=== PATIENT | female | born 1955 | race Caucasian/White ===

== ENCOUNTER → 2019-09-10 | Outpatient (CLI) | payer BC ==
[2019-09-10 10:54] LABS: Basophils # (A) 0.3 k/uL (0-0.2); Basophils % (A) 3 %; Eosinophils # (A) 0.1 k/uL (0-0.7); Eosinophils % (A) 1 %; HCT 45.9 % (34.0-46.0); HGB 14.5 gm/dL (11.4-16.0); Lymphocytes # (A) 2.9 k/uL (1.0-4.8); Lymphocytes % (A) 26 %; MCH 29.4 pg (25.0-35.0); MCHC 31.7 g/dL (31.0-37.0); MCV 92.9 fL (80.0-100.0); Monocytes # (A) 0.6 k/uL (0-1.0); Monocytes % (A) 5 %; Neutrophils # (A) 7.1 k/uL (1.3-7.7); Neutrophils % (A) 63 %; Platelet Count 460 k/uL (150-450); RBC 4.94 m/uL (3.80-5.40); RDW 13.3 % (11.5-15.5); WBC 11.3 k/uL (3.8-10.6)
[2019-09-10 16:15] LABS: African American GFR (CKD) 90.9 (60.0-200.0); Albumin 4.6 g/dL (3.80-4.90); Albumin/Globulin Ratio 2.09 (1.60-3.17); Anion Gap 10.1 mmol/L (4.00-12.00); BUN/Creat Ratio 17.5 Ratio (12.00-20.00); Calcium 10.9 mg/dL (8.7-10.3); Carbon Dioxide 27.9 mmol/L (21.6-31.8); Chol/HDL Ratio 4.58; Globulin 2.2 g/dL (1.6-3.3); LDL Cholesterol,Calculated 162.8 mg/dL (0.0-131.0); Total Bilirubin 0.5 mg/dL (0.2-1.2); Total Protein 6.8 g/dL (6.2-8.2); VLDL Calculation 23.2 mg/dL (5.00-40.00)
[2019-09-10 16:23] LABS: T4, Free (Free Thyroxine) 1.2 ng/dL (0.80-1.80)
== END | disposition home or self-care (01) ==
LOC: LABWHC1 09:43
PROVIDERS: ATTEND Nurse Practitioner Women's Health
DX: Z00.00 Encounter for general adult medical examination without abnormal findings (principal); I10 Essential (primary) hypertension; E03.9 Hypothyroidism, unspecified; Z79.899 Other long term (current) drug therapy
CPT/HCPCS: 36415; 80053; 80061; 84439; 84443; 85025

== ENCOUNTER → 2024-11-03 | Outpatient (CLI) | payer MEDICARE ==
--- NOTE | 2024-11-03 12:25 | CTL ---
EXAMINATION TYPE: CT Low Dose Lung DATE OF EXAM ORDERED: 11/03/2024 COMPARISON: None CLINICAL INDICATION: Female, 69 years old with history of Z12.2 LUNG CA SCR F17.210 CURRENT SMOKER; P HH, personal hx of nicotine dependence 1/2 ppd X 45 years currrent smoker, Lung cancer screening, His tory of Smoking/tobacco use. TECHNIQUE: Low dose computed tomography scan was performed through the chest at 1 mm thick sections a nd reconstructed images in multiple planes at 1 mm and [address] DLP: 148.[address] CTDI: 3.8 mGy Automated exposure control for dose reduction was used. CT DIAGNOSTIC QUALITY: Satisfactory FINDINGS: Thyroid is enlarged extends substernally in the upper mediastinum recommend follow-up ultrasound. There is mild central lobular emphysematous changes. No consolidative pneumonia. No pleural effusion. No pneumothorax. Calcified Soft tissue density within the trachea most likely related to retained secretion. Assessment for adenopathy limited by lack of contrast. Granuloma measuring 4 mm left upper lobe. Biap ical subpleural 2 mm pulmonary nodules likely benign. There is a nodule with calcification of the left breast. Aorta normal caliber with atherosclerotic changes. Moderate coronary artery calcifications. Heart siz e normal. Small hiatal hernia. There is degenerative changes of the spine. Nonspecific calcifications involving the spleen. Liver reduced attenuation correlate for hepatic steatosis. There is marked thickening of the adrenal glands greater on the left most likely the basis of hyperplasia. Nonobstructing right re nal calculus. IMPRESSION: 1. COPD with subsequent 5 mm calcified and noncalcified nodules too small to characterize but likely benign.. 2. Nonspecific splenic calcifications. Marked thickening of the adrenal glands are nonspecific possib ly related to hyperplasia. 3. There is a calcified nodule partially included in the field of view within the left breast recomme nd follow-up mammogram 4. Nonobstructing right renal calculus. 5. Enlarged thyroid extending substernally recommend correlation clinically. CT LUNG RAD AND CT CHEST RECOMMENDATION: Lung-Rad 2 Benign Appearance or Behavior: Continue annual sc reening with LDCT in 12 months. [facility], , 11/03/2024 12:23 PM
== END | disposition home or self-care (01) ==
LOC: RADCTMAIN 11:36
PROVIDERS: ATTEND Family Medicine
DX: Z12.2 Encounter for screening for malignant neoplasm of respiratory organs (principal); J44.9 Chronic obstructive pulmonary disease, unspecified; N20.0 Calculus of kidney; E04.9 Nontoxic goiter, unspecified; D73.89 Other diseases of spleen; F17.210 Nicotine dependence, cigarettes, uncomplicated; K76.0 Fatty (change of) liver, not elsewhere classified; K44.9 Diaphragmatic hernia without obstruction or gangrene
CPT/HCPCS: 71271